=== PATIENT | female | born 1990 | race Caucasian/White ===

== ENCOUNTER 2017-03-19 21:50 | Emergency (ER) | payer MEDICAID ==
[~2017-03-19] VITALS: Ht 170.2 cm; Wt 64.5 kg
[~2017-03-19 21:50] MED LIST: MOTRIN 800800 MG/TAB PO; PERCOCET 325 MG1 TA2 PO; PRENATAL1 TA7 PO
[2017-03-19 21:56] VITALS: BP 137/70
[2017-03-19 22:40] LABS: COLLECTION METHOD CLEAN CATCH
[2017-03-19 22:44] LABS: PH 6 (5-8); SQUAMOUS EPITHELIAL 0-2 /hpf; URINE APPEARANCE Clear; URINE BACTERIA None Seen /hpf; URINE BILIRUBIN Negative (NEGATIVE); URINE BLOOD Negative (NEGATIVE); URINE COLOR Yellow; URINE GLUCOSE Negative (NEGATIVE); URINE KETONE Negative (NEGATIVE); URINE LEUKOCYTE ESTERASE Trace (NEGATIVE); URINE NITRATE Negative (NEGATIVE); URINE PROTEIN(semi-quant) Negative (NEGATIVE); URINE RBC 0-2 /hpf; URINE UROBILINOGEN Negative (NEGATIVE)
[2017-03-19 22:46] LABS: INFLUENZA A NEGATIVE; INFLUENZA B POSITIVE
[2017-03-19] MEDS ORDERED: TAMIFLU 75MG75 MG PO (22:59)
[2017-03-19 23:30] VITALS: PULSE 120; TEMP 102.2
== END 2017-03-19 23:30 | disposition home or self-care (01) ==
LOC: COL.ER 21:50
PROVIDERS: Nurse Practitioner Primary Care
DX: J10.1 Influenza due to other identified influenza virus with other respiratory manifestations (principal); J45.909 Unspecified asthma, uncomplicated

== ENCOUNTER 2017-07-17 13:01 | Emergency (ER) | payer MEDICAID ==
[~2017-07-17] VITALS: Ht 170.2 cm; Wt 63.6 kg
[~2017-07-17 13:01] MED LIST changes: +CEFTIN500 MG PO; +OMNICEF 300MG300 MG PO; +TAMIFLU 75MG75 MG PO
[2017-07-17 13:03] VITALS: BP 120/77; TEMP 98.2
[2017-07-17 13:47] VITALS: PULSE 76
== END 2017-07-17 13:50 | disposition home or self-care (01) ==
LOC: COL.ER 13:01
DX: S60.221A Contusion of right hand, initial encounter (principal); W22.8XXA Striking against or struck by other objects, initial encounter

== ENCOUNTER 2017-09-20 22:56 | Emergency (ER) | payer MEDICAID ==
[~2017-09-20] VITALS: Ht 170.2 cm; Wt 63.6 kg
[2017-09-20 23:02] VITALS: BP 109/67; TEMP 98.9
[2017-09-20 23:56] VITALS: PULSE 88
== END 2017-09-20 23:56 | disposition home or self-care (01) ==
LOC: COL.ER 22:56
DX: S51.812A Laceration without foreign body of left forearm, initial encounter (principal); J45.909 Unspecified asthma, uncomplicated; W25.XXXA Contact with sharp glass, initial encounter; Y92.009 Unspecified place in unspecified non-institutional (private) residence as the place of occurrence of the external cause

== ENCOUNTER 2017-12-02 16:32 | Emergency (ER) | payer MEDICAID ==
[~2017-12-02] VITALS: Ht 167.6 cm; Wt 65.9 kg
[2017-12-02 16:40] VITALS: BP 112/71; TEMP 98.7
[2017-12-02 17:11] LABS: COLLECTION METHOD CLEAN CATCH
[2017-12-02 17:23] LABS: MUCOUS Present /lpf; PH 6 (5-8); URINE APPEARANCE Hazy; URINE BACTERIA Rare /hpf; URINE BILIRUBIN Negative (NEGATIVE); URINE BLOOD Negative (NEGATIVE); URINE COLOR Yellow; URINE GLUCOSE Negative (NEGATIVE); URINE KETONE Negative (NEGATIVE); URINE LEUKOCYTE ESTERASE 2+ (NEGATIVE); URINE NITRATE Negative (NEGATIVE); URINE PROTEIN(semi-quant) 1+ (NEGATIVE); URINE UROBILINOGEN Negative (NEGATIVE)
[2017-12-02] MEDS ORDERED: IRON 27 MG PO (17:24)
[2017-12-02 17:32] LABS: BASO % 0.6 % (0.0-2.0); EOS % 0.9 % (0-4.0); GRAN # 2.2 (1.4-6.5); GRAN % 62.8 % (42.2-75.2); HEMATOCRIT 32.7 % (37.0-47.0); HEMOGLOBIN 9.7 g/dl (12.5-16.0); LYMPH # 0.9 (1.2-3.4); LYMPH % 26.4 % (20.0-51.0); MEAN CELL VOLUME 71 fl (80.0-100.0); MEAN CORPUSCULAR HEMOGLOBIN 21 pg (27.0-31.0); MEAN CORPUSCULAR HGB CONC 30 g/dl (33.0-37.0); MEAN PLATELET VOLUME 9.9 fl (7.4-10.4); MONO # 0.3 (0.1-0.6); PLATELET COUNT 204 K/mm3 (130-400); RED BLOOD COUNT 4.59 M/mm3 (4.10-5.30)
[2017-12-02 17:52] LABS: ALBUMIN 4.3 gm/dL (3.5-5.0); BILIRUBIN,TOTAL 0.3 mg/dL (0.0-1.0); C-REACTIVE PROTEIN 0.6 mg/dL (0.0-0.9); CALCIUM 9.2 mg/dL (8.4-10.2); CREATININE, serum 0.78 mg/dL (0.52-1.25); POTASSIUM 3.7 mmol/L (3.4-5.0); TOTAL PROTEIN 9.5 gm/dL (6.4-8.2)
[2017-12-02] MEDS ORDERED: CEPHALEXIN500 M1 PO (20:07)
[2017-12-02 21:35] VITALS: PULSE 82
== END 2017-12-02 21:36 | disposition home or self-care (01) ==
LOC: COL.ER 16:32
PROVIDERS: Emergency Medicine
DX: O26.899 Other specified pregnancy related conditions, unspecified trimester (principal); O23.40 Unspecified infection of urinary tract in pregnancy, unspecified trimester; R51 Headache; Z3A.00 Weeks of gestation of pregnancy not specified
CPT/HCPCS: J0696; J1170; J2405; J7030

== ENCOUNTER 2018-01-22 15:58 | Emergency (ER) | payer MEDICAID ==
[~2018-01-22] VITALS: Ht 170.2 cm; Wt 65.9 kg
[~2018-01-22 15:58] MED LIST changes: +CEPHALEXIN500 M1 PO; +IRON 27 MG PO
[2018-01-22 16:10] VITALS: TEMP 97.6
[2018-01-22 17:21] LABS: COLLECTION METHOD CLEAN CATCH
[2018-01-22 17:36] LABS: BUDDING YEAST Present /hpf; MUCOUS Present /lpf; PH 6 (5-8); URINE APPEARANCE Hazy; URINE BACTERIA None Seen /hpf; URINE BILIRUBIN Negative (NEGATIVE); URINE BLOOD Negative (NEGATIVE); URINE COLOR Yellow; URINE GLUCOSE Negative (NEGATIVE); URINE KETONE Negative (NEGATIVE); URINE LEUKOCYTE ESTERASE 2+ (NEGATIVE); URINE NITRATE Negative (NEGATIVE); URINE PROTEIN(semi-quant) Negative (NEGATIVE); URINE RBC 0-2 /hpf; URINE UROBILINOGEN Negative (NEGATIVE)
[2018-01-22] MEDS ORDERED: CEPHALEXIN500 M1 PO (18:22)
[2018-01-22] MEDS ORDERED: FLAGYL500 MG PO (18:22)
[2018-01-22 18:42] VITALS: BP 118/56; PULSE 80
== END 2018-01-22 18:55 | disposition home or self-care (01) ==
LOC: COL.ER 15:58
PROVIDERS: Emergency Medicine
DX: O26.892 Other specified pregnancy related conditions, second trimester (principal); O23.92 Unspecified genitourinary tract infection in pregnancy, second trimester; O98.312 Other infections with a predominantly sexual mode of transmission complicating pregnancy, second trimester; R10.9 Unspecified abdominal pain; A59.01 Trichomonal vulvovaginitis; Z3A.16 16 weeks gestation of pregnancy
CPT/HCPCS: J0696

== ENCOUNTER 2018-06-20 06:21 | Inpatient (IN) | payer MEDICAID ==
[2018-06-20] VITALS (17 sets, daily range): BP systolic 111–128; BP diastolic 53–80; PULSE 67–94; TEMP 97.2–98.8
[~2018-06-20] VITALS: Ht 168.9 cm; Wt 79.5 kg
[~2018-06-20 06:21] MED LIST changes: +FLAGYL500 MG PO
--- NOTE | 2018-06-20 09:45 | NUR ---
Patient ambulatory onto unit for scheduled section. Patient into Room 210, changes into gown. Oriented to room, plan of care discussed. Patient reports good movement, denies vaginal bleeding, leaking of fluid, or contractions. EFMs on, VS taken. IV started to left hand, LR infusing per orders. Assessment completed. Consents signed.
[2018-06-20] MEDS ORDERED: PRENATAL VITAMI1 TA3 PO (10:12)
[2018-06-20 10:39] LABS: BASO % 0.4 % (0.0-2.0); EOS % 0.6 % (0-4.0); GRAN # 3.5 (1.4-6.5); GRAN % 66.2 % (42.2-75.2); LYMPH # 1.2 (1.2-3.4); LYMPH % 23.3 % (20.0-51.0); MEAN CELL VOLUME 75 fl (80.0-100.0); MEAN CORPUSCULAR HGB CONC 30 g/dl (33.0-37.0); MEAN PLATELET VOLUME 8.7 fl (7.4-10.4); MONO # 0.5 (0.1-0.6); MONO % 8.7 % (1.7-9.3); PLATELET COUNT 247 K/mm3 (130-400); REDCELL DISTRIBUTION WIDTH-CV 17.2 % (11.5-14.5)
[2018-06-20 10:40] LABS: HEMATOCRIT 26.4 % (37.0-47.0); HEMOGLOBIN 7.9 g/dl (12.5-16.0); MEAN CORPUSCULAR HEMOGLOBIN 23 pg (27.0-31.0)
--- NOTE | 2018-06-20 11:10 | NUR ---
Patient ambulatory to OR with and this RN at side.
--- NOTE | 2018-06-20 12:15 | NUR ---
Patient into PACU. This RN remains at bedside.
[2018-06-20] MEDS ORDERED: MOTRIN 800800 MG/TAB PO (12:24)
[2018-06-20] MEDS ORDERED: PERCOCET 325 MG1 TA2 PO (12:24)
--- NOTE | 2018-06-20 12:50 | NUR ---
Patient returns to Room 210 via bed. Plan of care discussed. Questions answered. Juice and crackers provided.
--- NOTE | 2018-06-20 17:10 | NUR ---
Patient up to bathroom without difficulty. Peter catheter dc'd. Pericare performed. Gown changed. Underwear and peripad in place. Patient to nursery via wheelchair to visit .
[2018-06-21 01:18] VITALS: BP 117/68; PULSE 60; TEMP 98
[2018-06-21 04:00] VITALS: BP 126/67; PULSE 75; TEMP 98.2
[2018-06-21 06:58] LABS: HEMATOCRIT 26.8 % (37.0-47.0)
[2018-06-21 08:35] VITALS: BP 122/70; PULSE 65; TEMP 98.3
--- NOTE | 2018-06-21 09:04 | NUR ---
Initial visit; Family yolette, [employer] left card of congratulations for the of their son and information regarding the availability of spiritual care at our hospital.
[2018-06-21 17:00] VITALS: BP 124/73; PULSE 66; TEMP 98.4
[2018-06-21 21:40] VITALS: BP 119/61; PULSE 72; TEMP 97.6
[2018-06-22 06:53] VITALS: BP 114/66; PULSE 78; TEMP 98.2
[2018-06-22 16:18] VITALS: BP 120/68; PULSE 76; TEMP 98.1
== END 2018-06-22 17:50 | disposition home or self-care (01) | DRG 787 ==
LOC: LDR 06:21 → OB 06:43
PROVIDERS: ADMIT Obstetrics & Gynecology
PROC: 10D00Z1 Extraction of Products of Conception, Low, Open Approach (ICD-10-PCS; principal; 2018-06-20)
DX: O32.1XX0 Maternal care for breech presentation, not applicable or unspecified (principal); O41.03X0 Oligohydramnios, third trimester, not applicable or unspecified; Z3A.37 37 weeks gestation of pregnancy; Z37.0 Single live birth; L93.0 Discoid lupus erythematosus; O99.02 Anemia complicating childbirth; D64.9 Anemia, unspecified; O99.344 Other mental disorders complicating childbirth; F41.8 Other specified anxiety disorders; O75.89 Other specified complications of labor and delivery; J45.909 Unspecified asthma, uncomplicated
CPT/HCPCS: J0690; J2270; J2370; J2405; J2590; J7120

== ENCOUNTER 2019-10-24 14:32 | Emergency (ER) | payer SELFPAY ==
[~2019-10-24] VITALS: Ht 170.2 cm; Wt 71.4 kg
[~2019-10-24 14:32] MED LIST changes: +PRENATAL VITAMI1 TA3 PO
[2019-10-24 14:43] VITALS: BP 138/85; TEMP 98.2
[2019-10-24 15:28] VITALS: PULSE 82
== END 2019-10-24 15:25 | disposition home or self-care (01) ==
LOC: COL.ER 14:32
DX: S61.213A Laceration without foreign body of left middle finger without damage to nail, initial encounter (principal); W29.0XXA Contact with powered kitchen appliance, initial encounter; Y92.009 Unspecified place in unspecified non-institutional (private) residence as the place of occurrence of the external cause

== ENCOUNTER 2020-03-21 11:31 | Emergency (ER) | payer SELFPAY ==
[~2020-03-21] VITALS: Ht 167.6 cm; Wt 74.1 kg
[2020-03-21 11:39] VITALS: TEMP 98.5
[2020-03-21 11:53] LABS: COLLECTION METHOD CLEAN CATCH
[2020-03-21 12:03] LABS: MUCOUS Present /lpf; PH 6 (5-8); SQUAMOUS EPITHELIAL 0-2 /hpf; URINE APPEARANCE Clear; URINE BACTERIA None Seen /hpf; URINE BILIRUBIN Negative (NEGATIVE); URINE BLOOD Negative (NEGATIVE); URINE COLOR Yellow; URINE GLUCOSE Negative (NEGATIVE); URINE KETONE Negative (NEGATIVE); URINE LEUKOCYTE ESTERASE 1+ (NEGATIVE); URINE NITRATE Negative (NEGATIVE); URINE PROTEIN(semi-quant) Negative (NEGATIVE); URINE RBC 0-2 /hpf; URINE UROBILINOGEN Negative (NEGATIVE)
[2020-03-21] MEDS ORDERED: FLAGYL500 MG PO (12:39)
[2020-03-21] MEDS ORDERED: CEFTIN 250250 MG/TAB PO (12:39)
[2020-03-21 13:05] VITALS: BP 116/64; PULSE 79
== END 2020-03-21 13:20 | disposition home or self-care (01) ==
LOC: COL.ER 11:31
PROVIDERS: Physician Assistant
DX: N76.0 Acute vaginitis (principal); N39.0 Urinary tract infection, site not specified
CPT/HCPCS: J0696